=== PATIENT | male | born 1995 | race Caucasian/White ===

== ENCOUNTER 2022-09-15 22:10 | Emergency (ER) | payer BC ==
[~2022-09-15] VITALS: Ht 170.2 cm; Wt 91.0 kg
[2022-09-15 22:16] VITALS: O2SAT 98
[2022-09-15 23:10] LABS: BASOPHILS % 0.8 % (0.0-2.0); EOSINOPHILS % 2.3 % (0.0-5.0); HEMATOCRIT. 42.3 % (42.0-52.0); HEMOGLOBIN. 14.6 g/dL (14.0-18.0); LYMPHOCYTES % 44.1 % (20.0-50.0); MEAN CORPUSCULAR HEMOGLOBIN 30.1 pg (28.0-32.0); MEAN CORPUSCULAR VOLUME 87.1 fL (80.0-94.0); MEAN PLATELET VOLUME 7.9 fl (7.4-10.4); MONOCYTES % 8.4 % (2.0-8.0); NEUTROPHILS % 44.4 % (40.0-76.0); PLATELET 172 x1000/uL (130-400); RED BLOOD CELL COUNT 4.86 mill/uL (4.7-6.1); RED CELL DISTRIBUTION WIDTH 12.9 % (11.6-14.6)
[2022-09-15 23:20] LABS: CHLORIDE 107 mEq/L (98-107)
[2022-09-16] MEDS ORDERED: MAG355OR21 MT (09:02)
[2022-09-16] MEDS ORDERED: PROT40 MT (09:02)
[2022-09-16 10:30] VITALS: BP 115/70; PULSE 68; RESP 16; TEMP 98.3
== END 2022-09-16 11:32 ==
LOC: EDBD 22:10 → ER 22:10
DX: R07.89 Other chest pain (principal); F31.9 Bipolar disorder, unspecified; R10.13 Epigastric pain
CPT/HCPCS: 36415; 71045; 76705; 80053; 83880; 84484; 85025; 85379; 93005; 99285